=== PATIENT | female | born 1985 | race Caucasian/White ===

== ENCOUNTER 2021-01-28 13:16 | Inpatient (IN) | payer OTHER ==
[2021-01-28 14:42] LABS: BILIRUBIN NEGATIVE (NEGATIVE); BLOOD 1+ Ery/uL (NEGATIVE); CLARITY CLOUDY (CLEAR); COLOR YELLOW (YELLOW); GLUCOSE (U) NORMAL (NORMAL); LEUKOCYTES NEGATIVE Leu/uL (NEGATIVE); NITRITE NEGATIVE (NEGATIVE); PROTEIN 3+ mg/dL (NEGATIVE); SPECIFIC GRAVITY 1.025 (1.001-1.030); UROBILINOGEN 0.2 mg/dL (0.2-1.0); pH 6.5 (5.0-9.0)
[2021-01-28 14:59] LABS: SQUAMOUS EPITHELIAL CELLS >50
[2021-01-28 15:01] LABS: AMORPHOUS URATES CRYSTALS MODERATE; BACTERIA 1+
[2021-01-28 17:08] LABS: HGB 11.1 g/dl (12.5-16.0); MCH 30.7 pg (25.0-31.0); MCHC 33.6 g/dL (32.0-36.0); MCV 91.4 fL (78.0-100.0); MPV 10.7 fL (6.0-9.5); RBC 3.61 M/uL (4.20-5.40); RDW 14.7 % (11.5-14.0); WBC 12.7 K/uL (4.0-10.5)
[2021-01-30 06:09] LABS: HCT 32.4 % (37.0-47.0); HGB 10.4 g/dl (12.5-16.0); MCH 30.4 pg (25.0-31.0); MCHC 32.1 g/dL (32.0-36.0); MCV 94.7 fL (78.0-100.0); MPV 10.7 fL (6.0-9.5); RBC 3.42 M/uL (4.20-5.40); RDW 15.4 % (11.5-14.0); WBC 17.3 K/uL (4.0-10.5)
== END 2021-01-31 14:48 | disposition home or self-care (01) | DRG 806 ==
LOC: FOD 13:16 → FOB 13:17 → FOD 16:15 → FOB 16:16
PROVIDERS: ADMIT Obstetrics & Gynecology
PROC: 10E0XZZ Delivery of Products of Conception, External Approach (ICD-10-PCS; principal; 2021-01-29)
PROC: 0KQM0ZZ Repair Perineum Muscle, Open Approach (ICD-10-PCS; 2021-01-29)
DX: O99.02 Anemia complicating childbirth (principal); O98.52 Other viral diseases complicating childbirth; Z37.0 Single live birth; D62 Acute posthemorrhagic anemia; B00.2 Herpesviral gingivostomatitis and pharyngotonsillitis; O99.344 Other mental disorders complicating childbirth; F41.9 Anxiety disorder, unspecified; Z3A.39 39 weeks gestation of pregnancy; O70.1 Second degree perineal laceration during delivery; Z20.822 Contact with and (suspected) exposure to COVID-19; O26.893 Other specified pregnancy related conditions, third trimester; Z67.41 Type O blood, Rh negative
CPT/HCPCS: 36415; 81001; 84112; 85461; 86850; 86900; 86901; J2300; J2405; J2790; J7120; U0002